=== PATIENT | female | born 1950 | race Caucasian/White ===

== ENCOUNTER → 2017-03-14 | Outpatient (CLI) | payer OTHER ==
--- NOTE | 2017-03-14 14:58 | RAD ---
DATE: 03/14/2017 EXAM: DIGITAL SCREEN BILAT W/CAD HISTORY: Astigmatic screening mammogram COMPARISON: Prior mammograms from 03/11/2016, 09/21/2015, 03/13/2015, 03/04/2015 This study was interpreted with the benefit of Computerized Aided Detection (CAD). The breast parenchyma is heterogeneously dense, which could reduce sensitivity of mammography. Breast parenchyma level C. FINDINGS: Bilateral CC and MLO views of the breasts were performed. Right breast: No suspicious microcalcifications, masses or areas of architectural distortion. Left breast: No suspicious microcalcifications, masses or areas of architectural distortion. Findings are stable from prior mammogram. IMPRESSION: Negative bilateral mammogram. BI-RADS CATEGORY: 1 NEGATIVE RECOMMENDED FOLLOW-UP: 12M 12 MONTH FOLLOW-UP PQRS compliance statement: Patient information was entered into a reminder system with a target due date 03/14/2018 for the next mammogram. Mammography is a sensitive method for finding small breast cancers, but it does not detect them all and is not a substitute for careful clinical examination. A negative mammogram does not negate a clinically suspicious finding and should not result in delay in biopsying a clinically suspicious abnormality. "Our facility is accredited by the [employer] Mammography Program."
== END | disposition home or self-care (01) ==
LOC: MAMMO 13:54
PROVIDERS: ATTEND Family Medicine
DX: Z12.31 Encounter for screening mammogram for malignant neoplasm of breast (principal)
CPT/HCPCS: G0202; 77067

== ENCOUNTER → 2018-03-15 | Outpatient (CLI) | payer OTHER ==
--- NOTE | 2018-03-16 19:09 | RAD ---
DATE: 03/15/2018 EXAM: DIGITAL SCREEN BILAT W/CAD HISTORY: routine screening evaluation. COMPARISON: 03/14/2017, 03/11/2016, 09/21/2015, 03/13/2015, 03/04/2015 Bilateral full field craniocaudal and mediolateral oblique images were obtained using digital technique. This study was interpreted with the benefit of Computerized Aided Detection (CAD). The breast parenchyma shows scattered fibroglandular densities. Breast parenchyma level B. FINDINGS: Benign calcifications are present. No suspicious masses, microcalcifications or architectural distortion is present to suggest malignancy in either breast. The visualized axillae are unremarkable. IMPRESSION: No mammographic evidence of malignancy. BI-RADS CATEGORY: 2 BENIGN FINDING(S) RECOMMENDED FOLLOW-UP: 12M 12 MONTH FOLLOW-UP Annual screening mammography is recommended, unless clinically indicated sooner based on symptoms or change in physical exam. PQRS compliance statement: Patient information was entered into a reminder system with a target due date for the next mammogram. Mammography is a sensitive method for finding small breast cancers, but it does not detect them all and is not a substitute for careful clinical examination. A negative mammogram does not negate a clinically suspicious finding and should not result in delay in biopsying a clinically suspicious abnormality. "Our facility is accredited by the [employer] Mammography [employer]."
== END | disposition home or self-care (01) ==
LOC: MAMMO 13:10
PROVIDERS: ATTEND Family Medicine
DX: Z12.31 Encounter for screening mammogram for malignant neoplasm of breast (principal)
CPT/HCPCS: 77067

== ENCOUNTER → 2018-12-27 | Outpatient (CLI) | payer OTHER ==
--- NOTE | 2018-12-27 11:28 | CARD ---
MR#: [id number] Date of Study: 12/27/2018 Ordering Physician: ROBERT BRYAN, Referring Physician: ROBERT BRYAN, Tech: Merna Godfrey YURIY APPROVED REPORT EXAM: Two-dimensional and M-mode echocardiogram with Doppler and color Doppler. Other Information Quality : Good INDICATION Murmur Exertional Dyspnea 2D DIMENSIONS RVDd2.6 (2.9-3.5cm)Left Atrium(2D)3.3 (1.6-4.0cm) IVSd0.9 (0.7-1.1cm)Aortic Root(2D)2.6 (2.0-3.7cm) LVDd4.6 (3.9-5.9cm)LVOT Diameter1.8 (1.8-2.4cm) PWd0.8 (0.7-1.1cm)LVDs3.2 (2.5-4.0cm) FS (%) 29.0 %SV53.5 ml LVEF(%)55.8 (>50%) Aortic Valve AoV Peak Robert.137.2cm/sAoV VTI28.1cm AO Peak GR.7.5mmHgLVOT Peak Robert.121.5cm/s AO Mean GR.4mmHgAVA (VMAX)2.14cm2 ZINA (VTI)2.50cm2 Mitral Valve MV E Sfypsdfw59.0cm/sMV DECEL NEWB806ef MV A Piijlmpy44.9cm/sE/A Ratio0.9 Tricuspid Valve TR P. Ddbwlnnz009fg/sRAP [id number] TR Peak Gr.45ibBeGDBJ78reYs Pulmonary Vein S1 Crlzbavk95.4cm/sD2 Lpgyuqwj22.9cm/s LEFT VENTRICLE The left ventricle is normal size. There is normal left ventricular wall thickness. The left ventricu lar systolic function is normal and the ejection fraction is within normal range. The Ejection Fracti on is 55-60%. There is normal LV segmental wall motion. Transmitral Doppler flow pattern is Grade I-a bnormal relaxation pattern. RIGHT VENTRICLE The right ventricle is normal size. The right ventricular systolic function is normal. ATRIA The left atrium size is normal. The right atrium size is normal. The interatrial septum is intact wit h no evidence for an atrial septal defect or patent foramen ovale as noted on 2-D or Doppler imaging. AORTIC VALVE The aortic valve is calcified but opens well. Doppler and Color Flow revealed no significant aortic r egurgitation. There is no significant aortic valvular stenosis. MITRAL VALVE The mitral valve is normal in structure and function. There is no evidence of mitral valve prolapse. There is no mitral valve stenosis. Doppler and Color-flow revealed trace to mild mitral regurgitation . TRICUSPID VALVE The tricuspid valve is normal in structure and function. Doppler and Color Flow revealed trace tricus pid regurgitation. The PA pressure was estimated at 31 mmHg. There is no tricuspid valve prolapse or vegetation. PULMONIC VALVE Doppler and Color Flow revealed trace pulmonic valvular regurgitation. There is no pulmonic valvular stenosis. GREAT VESSELS The aortic root is normal in size. The ascending aorta is normal in size. The IVC is normal in size a nd collapses >50% with inspiration. PERICARDIAL EFFUSION There is no evidence of significant pericardial effusion. Critical Notification Critical Value: No <Conclusion> The left ventricular systolic function is normal and the ejection fraction is within normal range. Th e Ejection Fraction is 55-60%. There is normal LV segmental wall motion. Signed by : Mario Cleary, Electronically Approved : 12/27/2018 11:28:13
== END | disposition home or self-care (01) ==
LOC: ECHO 09:36
PROVIDERS: ATTEND Internal Medicine Cardiovascular Disease
DX: I08.0 Rheumatic disorders of both mitral and aortic valves (principal)
CPT/HCPCS: 93306

== ENCOUNTER → 2019-06-04 | Outpatient (CLI) | payer MEDICAID ==
--- NOTE | 2019-06-04 16:41 | RAD ---
DATE: 06/04/2019. EXAM: DIGITAL SCREEN BILAT W/CAD. HISTORY: Routine mammographic screening. COMPARISON: 03/15/2018. This study was interpreted with the benefit of Computerized Aided Detection (CAD). FINDINGS: Breast Density: SCATTERED The breast parenchyma shows scattered fibroglandular densities. Breast parenchyma level B.. Scattered and coarse calcifications are benign. There are no suspicious masses, microcalcifications or architectural distortion. The parenchymal pattern is stable. BI-RADS CATEGORY: 2 BENIGN FINDING(S). RECOMMENDED FOLLOW-UP: 12M 12 MONTH FOLLOW-UP. PQRS compliance statement: Patient information was entered into a reminder system with a target due date 06/04/2020 for the next mammogram. Mammography is a sensitive method for finding small breast cancers, but it does not detect them all and is not a substitute for careful clinical examination. A negative mammogram does not negate a clinically suspicious finding and should not result in delay in biopsying a clinically suspicious abnormality. "Our facility is accredited by the [employer] Mammography Program."
== END | disposition home or self-care (01) ==
LOC: MAMMO 13:32
PROVIDERS: ATTEND Family Medicine
DX: Z12.31 Encounter for screening mammogram for malignant neoplasm of breast (principal); N64.89 Other specified disorders of breast
CPT/HCPCS: 77067

== ENCOUNTER 2019-12-08 10:52 | Observation (INO) | payer MEDICAID ==
[~2019-12-08] VITALS: Ht 157.5 cm; Wt 77.4 kg
[2019-12-08] MEDS ORDERED: dilTIAZem IV PUSH 25 MG/5 ML VIAL ONE (11:26)
[2019-12-08] MEDS ORDERED: DILTIAZEM HCL 125 MG in IV NORMAL SALINE 100ML 100 ML IV ONE (11:30)
[2019-12-08] MEDS ORDERED: dilTIAZem IV PUSH 25 MG/5 ML VIAL IVP ONE (11:30)
--- NOTE | 2019-12-08 11:43 | RAD ---
CHEST AP ONLY History: Chest pain Comparison: July 11, 2016 Findings: No consolidation or pleural effusion. Normal heart size. No pneumothorax. Surgical clips right upper quadrant. Impression: 1. No acute cardiopulmonary process. Electronically signed by: Yazan Meza DO (12/08/2019 11:41 AM) [facility] [place]
[2019-12-08 12:08] LABS: BASO # 0.1 x10^3/uL (0.0-0.2); BASO % 1 % (0-3); EOS # 0.3 x10^3/uL (0.0-0.7); EOS % 3 % (0-3); HEMATOCRIT 38.3 % (36.0-47.0); HEMOGLOBIN 12.3 g/dL (12.0-15.5); LYMPH # 2.6 x10^3/uL (1.0-4.8); LYMPH % 28 % (24-48); MEAN CORPUSCULAR HEMOGLOBIN 25 pg (25-35); MEAN CORPUSCULAR HGB CONC 32 g/dL (31-37); MEAN CORPUSCULAR VOLUME 77 fL (79-100); MONO # 0.4 x10^3/uL (0.0-1.1); MONO % 4 % (0-9); NEUT # 6.1 x10^3/uL (1.8-7.7); NEUT % 65 % (31-73); PLATELET COUNT 277 x10^3/uL (140-400); RED BLOOD COUNT 4.94 x10^6/uL (3.50-5.40); RED CELL DISTRIBUTION WIDTH 15.5 % (11.5-14.5); WHITE BLOOD COUNT 9.5 x10^3/uL (4.0-11.0)
[2019-12-08 12:17] LABS: CALCIUM 9.4 mg/dL (8.5-10.1); CREATININE 1.1 mg/dL (0.6-1.0); GFR 49.1; PROTHROMBIN TIME PATIENT 12.8 SEC (11.7-14.0)
[2019-12-08 12:22] LABS: ALBUMIN 3.3 g/dL (3.4-5.0); ALBUMIN/GLOBULIN RATIO 0.8 (1.0-1.7); MAGNESIUM 1.6 mg/dL (1.8-2.4); TOTAL BILIRUBIN 0.3 mg/dL (0.2-1.0); TOTAL PROTEIN 7.2 g/dL (6.4-8.2)
--- NOTE | 2019-12-08 12:29 | PHYS DOC ---
Past Medical History Past Medical History: CHF, Hypothyroid, Other Additional Past Medical Histor: MENTALLY HANDICAP Past Surgical History: Other Additional Past Surgical Histo: UNKNOWN Smoking Status: Former Smoker Alcohol Use: None General Adult EDM: Chief Complaint: RAPID HEART RATE HPI: HPI: Patient is a 69-year-old female with a history of congestive heart failure and a possible irregular heart rate. This morning she states that she was in her usual state of health when she became dizzy and felt like a jet engine was running through her head. She then states she just really felt a feeling of exhaustion. She denies any chest pain or shortness of breath. She had no vomiting she did say she was a little nauseous with the dizziness. Review of Systems: Review of Systems: Constitutional: Denies fever or chills. [] Eyes: Denies change in visual acuity. [] HENT: Denies nasal congestion or sore throat. [] Respiratory: Denies cough or shortness of breath. [] Cardiovascular: Per HPI [] GI: Denies abdominal pain, nausea, vomiting, bloody stools or diarrhea. [] : Denies dysuria. [] Musculoskeletal: Denies back pain or joint pain. [] Integument: Denies rash. [] Neurologic: Denies headache, focal weakness or sensory changes. [] Endocrine: Denies polyuria or polydipsia. [] Lymphatic: Denies swollen glands. [] Psychiatric: Reports anxiety. [] Heart Score: Risk Factors: Risk Factors: DM, Current or recent (<one month) smoker, HTN, HLP, family history of CAD, obesity. Risk Scores: Score 0 - 3: 2.5% MACE over next 6 weeks - Discharge Home Score 4 - 6: 20.3% MACE over next 6 weeks - Admit for Clinical Observation Score 7 - 10: 72.7% MACE over next 6 weeks - Early Invasive Strategies Current Medications: Current Medications Medications (Trade) Dose Ordered Sig/Keyshawn Start Time Stop Time Status Last Admin Dose Admin Diltiazem HCl (Cardizem Iv Push) 25 mg STK-MED ONCE 12/08/19 11:26 12/08/19 11:27 DC Diltiazem HCl 125 mg/Sodium Chloride 125 ml @ 5 mls/hr 1X ONCE 12/08/19 11:30 12/09/19 12:29 Allergies: Allergies: Allergies Coded Allergies Type Severity Reaction Last Updated Verified Penicillins Allergy Unknown UNKNOWN 12/08/19 Yes aspirin Allergy Unknown UNKNOWN 12/08/19 Yes Physical Exam: PE: Constitutional: Well developed, well nourished, mild to moderate distress, non- toxic appearance. [] HENT: Normocephalic, atraumatic, bilateral external ears normal, oropharynx moist, no oral exudates, nose normal. [] Eyes: PERRLA, EOMI, conjunctiva normal, no discharge. [] Neck: Normal range of motion, no tenderness, supple, no stridor. [] Cardiovascular: Tachycardia irregularly irregular [] Lungs & Thorax: Bilateral breath sounds clear to auscultation [] Abdomen: Bowel sounds normal, soft, no tenderness, no masses, no pulsatile m asses. [] Skin: Warm, dry, no erythema, no rash. [] Back: No tenderness, no CVA tenderness. [] Extremities: No tenderness, no cyanosis, no clubbing, ROM intact, no edema. [] Neurologic: Alert and oriented X 3, normal motor function, normal sensory function, no focal deficits noted. [] Psychologic: Anxious [] Current Patient Data: Labs: Laboratory Tests Test 12/08/19 11:10 White Blood Count 9.5 x10^3/uL (4.0-11.0) Red Blood Count 4.94 x10^6/uL (3.50-5.40) Hemoglobin 12.3 g/dL (12.0-15.5) Hematocrit 38.3 % (36.0-47.0) Mean Corpuscular Volume 77 fL (79-100) L Mean Corpuscular Hemoglobin 25 pg (25-35) Mean Corpuscular Hemoglobin Concent 32 g/dL (31-37) Red Cell Distribution Width 15.5 % (11.5-14.5) H Platelet Count 277 x10^3/uL (140-400) Neutrophils (%) (Auto) 65 % (31-73) Lymphocytes (%) (Auto) 28 % (24-48) Monocytes (%) (Auto) 4 % (0-9) Eosinophils (%) (Auto) 3 % (0-3) Basophils (%) (Auto) 1 % (0-3) Neutrophils # (Auto) 6.1 x10^3/uL (1.8-7.7) Lymphocytes # (Auto) 2.6 x10^3/uL (1.0-4.8) Monocytes # (Auto) 0.4 x10^3/uL (0.0-1.1) Eosinophils # (Auto) 0.3 x10^3/uL (0.0-0.7) Basophils # (Auto) 0.1 x10^3/uL (0.0-0.2) Sodium Level 141 mmol/L (136-145) Potassium Level 4.0 mmol/L (3.5-5.1) Chloride Level 103 mmol/L (98-107) Carbon Dioxide Level 27 mmol/L (21-32) Anion Gap 11 (6-14) Blood Urea Nitrogen 16 mg/dL (7-20) Creatinine 1.1 mg/dL (0.6-1.0) H Estimated GFR (Cockcroft-Gault) 49.1 BUN/Creatinine Ratio 15 (6-20) Glucose Level 117 mg/dL (70-99) H Calcium Level 9.4 mg/dL (8.5-10.1) Magnesium Level Pending Total Bilirubin Pending Aspartate Amino Transferase (AST) Pending Alanine Aminotransferase (ALT) Pending Alkaline Phosphatase Pending Total Protein Pending Albumin Pending Albumin/Globulin Ratio Pending Laboratory Tests 12/08/19 11:10 Laboratory Tests 12/08/19 11:10 Vital Signs: Vital Signs Date Time Temp Pulse Resp B/P (MAP) Pulse Ox O2 Delivery O2 Flow Rate FiO2 12/08/19 11:45 40 158/78 (104) 95 Room Air 12/08/19 10:52 98.3 19 98.3 EKG: EKG: [EKG #1: Rapid atrial fibrillation rate of 120 with no obvious ischemic ST-T changes EKG #2 sinus bradycardia rate of 40 no obvious ischemia] Radiology/Procedures: Radiology/Procedures: []REASON: chest pain PROCEDURE: CHEST AP ONLY CHEST AP ONLY History: Chest pain Comparison: July 11, 2016 Findings: No consolidation or pleural effusion. Normal heart size. No pneumothorax. Surgical clips right upper quadrant. Impression: 1. No acute cardiopulmonary process. Course & Med Decision Making: Course & Med Decision Making Pertinent Labs and Imaging studies reviewed. (See chart for details) [ED course: Evaluation reveals a 69-year-old female who was initially in rapid atrial fibrillation she was given 10 mg of Cardizem IV which brought her down into the 20s then 30 and she has been hovering in the 40s at sinus bradycardia since that time. The Cardizem drip was never started.] Zackary Disclaimer: Zackary Disclaimer: This electronic medical record was generated, in whole or in part, using a voice recognition dictation system. Departure Departure Impression: Primary Impression: Rapid atrial fibrillation Additional Impression: Sinus bradycardia Disposition: ADMITTED INPATIENT Admitting Physician: PARK Condition: STABLE Referrals: Rahat REY MD (PCP) MARGARETH MOCK DO December 08, 2019 12:29
[2019-12-08] MEDS ORDERED: ONDANSETRON PF 4 MG/2 ML VIAL. IV PRN ×2 (12:30→15:30)
--- NOTE | 2019-12-08 12:40 | PDOC1 ---
History and Physical Date of Admission Date of Admission DATE: 12/08/19 TIME: 12:39 Identification/Chief Complaint Chief Complaint SEEN IN ER WITH A FIB RVR , 69-year-old female with a history of congestive heart failure and a irregular heart rate. This morning she was in her usual state of health when she became dizzy and felt like a jet engine was running through her heaD //states she just really felt a feeling of exhaustion. She denies any chest pain or shortness of breath. had no vomiting she did say she was a little nauseous with the dizziness. Given 10 mg iv cardizem in er x 1 Past Medical History Past Medical History Past Medical History Past Medical History Past Medical History: CHF, Hypothyroid, Other Additional Past Medical Histor: MENTALLY HANDICAP Past Surgical History: Other Additional Past Surgical Histo: UNKNOWN Smoking Status: Former Smoker Alcohol Use: None fhx copd Musculoskeletal: Osteoarthritis Renal/: No pertinent hx Family History Family History: High Cholestrol Social History Smoke: No ALCOHOL: none Drugs: None Current Problem List Problem List Problems Medical Problems: (1) Rapid atrial fibrillation Status: Acute (2) Sinus bradycardia Status: Acute Current Medications Current Medications Current Medications Diltiazem HCl (Cardizem Iv Push) 10 mg 1X ONCE IVP Last administered on 12/08/19at 11:30; Start 12/08/19 at 11:30; Stop 12/08/19 at 11:35; Status DC Diltiazem HCl 125 mg/Sodium Chloride 125 ml @ 5 mls/hr 1X ONCE IV ; Start 12/08/19 at 11:30; Stop 12/09/19 at 12:29 Diltiazem HCl (Cardizem Iv Push) 25 mg STK-MED ONCE .ROUTE ; Start 12/08/19 at 11:26; Stop 12/08/19 at 11:27; Status DC Ondansetron HCl (Zofran) 4 mg PRN Q8HRS PRN IV NAUSEA/VOMITING; Start 12/08/19 at 12:30; Stop 12/09/19 at 12:29 Allergies Allergies: Coded Allergies: Penicillins (Verified Allergy, Unknown, UNKNOWN, 12/08/19) aspirin (Verified Allergy, Unknown, UNKNOWN, 12/08/19) ROS Review of System Review of Systems: 14 pt ros otherwise neg Constitutional: Denies fever or chills. [] Eyes: Denies change in visual acuity. [] HENT: Denies nasal congestion or sore throat. [] Respiratory: Denies cough or shortness of breath. [] Cardiovascular: Per HPI [] GI: Denies abdominal pain, nausea, vomiting, bloody stools or diarrhea. [] : Denies dysuria. [] Musculoskeletal: Denies back pain or joint pain. [] Integument: Denies rash. [] Neurologic: Denies headache, focal weakness or sensory changes. [] Endocrine: Denies polyuria or polydipsia. [] Lymphatic: Denies swollen glands. [] Psychiatric: Reports anxiety. [] General: YES: Fatigue, Malaise PSYCHOLOGICAL ROS: YES: Anxiety; No: Behavioral Disorder, Concentration difficultie, Decreased libido, Depression, Disorientation, Hallucinations, Hostility, Irritablity, Memory difficulties, Mood Swings, Obsessive thoughts, Physical abuse, Sexual abuse, Sleep disturbances, Suicidal ideation, Other Eyes: No Blurry vision, No Decreased vision, No Double vision, No Dry eyes, No Excessive tearing, No Eye Pain, No Itchy Eyes, No Loss of vision, No Photophobia, No Scotomata, No Uses contacts, No Uses glasses, No Other HEENT: No: Heacaches, Visual Changes, Hearing change, Nasal congestion, Nasal discharge, Oral lesions, Sinus pain, Sore Throat, Epistaxis, Sneezing, Snoring, Tinnitus, Vertigo, Vocal changes, Other Hematological and Lymphatic: No: Bleeding Problems, Blood Clots, Blood Transfusions, Brusing, Night Sweats, Pallor, Swollen Lymph Nodes, Other Cardiovascular: yes Palpitations; No Chest Pain, No Orthopnea, No Paroxysmal Noc. Dyspnea, No Edema, No Lt Headedness, No Other Gastrointestinal: Yes Nausea; No Vomiting, No Abdominal Pain, No Diarrhea, No Constipation, No Melena, No Hematochezia, No Other Genitourinary: No Dysuria, No Frequency, No Incontinence, No Hematuria, No Retention, No Discharge, No Urgency, No Pain, No Flank Pain, No Other, No , No , No , No , No , No , No Musculoskeletal: No Gait Disturbance, No Joint Pain, No Joint Stiffness, No Trinity int Swelling, No Muscle Pain, No Muscular Weakness, No Pain In:, No Swelling In:, No Other Neurological: Yes Confusion; No Behavorial Changes, No Bowel/Bladder ControlChng, No Dizziness, No Gait Disturbance, No Headaches, No Impaired Coord/balance, No Memory Loss, No Numbness/Tingling, No Seizures, No Speech Problems, No Tremors, No Visual Changes, No Weakness, No Other Skin: No Dry Skin, No Eczema, No Hair Changes, No Lumps, No Mole Changes, No Mottling, No Nail Changes, No Pruritus, No Rash, No Skin Lesion Changes, No Other, No Acne Physical Exam Physical Exam Physical Exam: PE: Constitutional: Well developed, well nourished, mild to moderate distress, non- toxic appearance. [] HENT: Normocephalic, atraumatic, bilateral external ears normal, oropharynx moist, no oral exudates, nose normal. [] Eyes: PERRLA, EOMI, conjunctiva normal, no discharge. [] Neck: Normal range of motion, no tenderness, supple, no stridor. [] Cardiovascular: Tachycardia irregularly irregular [] Lungs & Thorax: Bilateral breath sounds clear to auscultation [] Abdomen: Bowel sounds normal, soft, no tenderness, no masses, no pulsatile masses. [] Skin: Warm, dry, no erythema, no rash. [] Back: No tenderness, no CVA tenderness. [] Extremities: No tenderness, no cyanosis, no clubbing, ROM intact, no edema. [] Neurologic: Alert and oriented X 3, normal motor function, normal sensory function, no focal deficits noted. [] Psychologic: Anxious [] General: Alert, Oriented X3, Cooperative HEENT: EOMI, Mucous membr. moist/pink Lungs: Clear to auscultation, Normal air movement Heart: irregularly irregular Breasts: Not examined Abdomen: Normal bowel sounds, Soft Rectal Exam: not examined Extremities: No cyanosis Neuro: Normal speech, Cranial nerves 3-12 NL Psych/Mental Status: Mood NL Vitals Vitals Vital Signs Date Time Temp Pulse Resp B/P (MAP) Pulse Ox O2 Delivery O2 Flow Rate FiO2 12/08/19 11:45 40 158/78 (104) 95 Room Air 12/08/19 10:52 98.3 19 98.3 Labs Labs Laboratory Tests Test 12/08/19 11:10 White Blood Count 9.5 x10^3/uL (4.0-11.0) Red Blood Count 4.94 x10^6/uL (3.50-5.40) Hemoglobin 12.3 g/dL (12.0-15.5) Hematocrit 38.3 % (36.0-47.0) Mean Corpuscular Volume 77 fL (79-100) Mean Corpuscular Hemoglobin 25 pg (25-35) Mean Corpuscular Hemoglobin Concent 32 g/dL (31-37) Red Cell Distribution Width 15.5 % (11.5-14.5) Platelet Count 277 x10^3/uL (140-400) Neutrophils (%) (Auto) 65 % (31-73) Lymphocytes (%) (Auto) 28 % (24-48) Monocytes (%) (Auto) 4 % (0-9) Eosinophils (%) (Auto) 3 % (0-3) Basophils (%) (Auto) 1 % (0-3) Neutrophils # (Auto) 6.1 x10^3/uL (1.8-7.7) Lymphocytes # (Auto) 2.6 x10^3/uL (1.0-4.8) Monocytes # (Auto) 0.4 x10^3/uL (0.0-1.1) Eosinophils # (Auto) 0.3 x10^3/uL (0.0-0.7) Basophils # (Auto) 0.1 x10^3/uL (0.0-0.2) Prothrombin Time 12.8 SEC (11.7-14.0) Prothromb Time International Ratio 1.0 (0.8-1.1) Sodium Level 141 mmol/L (136-145) Potassium Level 4.0 mmol/L (3.5-5.1) Chloride Level 103 mmol/L (98-107) Carbon Dioxide Level 27 mmol/L (21-32) Anion Gap 11 (6-14) Blood Urea Nitrogen 16 mg/dL (7-20) Creatinine 1.1 mg/dL (0.6-1.0) Estimated GFR (Cockcroft-Gault) 49.1 BUN/Creatinine Ratio 15 (6-20) Glucose Level 117 mg/dL (70-99) Calcium Level 9.4 mg/dL (8.5-10.1) Magnesium Level 1.6 mg/dL (1.8-2.4) Total Bilirubin 0.3 mg/dL (0.2-1.0) Aspartate Amino Transf (AST/SGOT) 12 U/L (15-37) Alanine Aminotransferase (ALT/SGPT) 10 U/L (14-59) Alkaline Phosphatase 117 U/L (46-116) Troponin I Quantitative < 0.017 ng/mL (0.000-0.055) Total Protein 7.2 g/dL (6.4-8.2) Albumin 3.3 g/dL (3.4-5.0) Albumin/Globulin Ratio 0.8 (1.0-1.7) Thyroid Stimulating Hormone (TSH) 2.398 uIU/mL (0.358-3.74) Laboratory Tests Test 12/08/19 11:10 White Blood Count 9.5 x10^3/uL (4.0-11.0) Red Blood Count 4.94 x10^6/uL (3.50-5.40) Hemoglobin 12.3 g/dL (12.0-15.5) Hematocrit 38.3 % (36.0-47.0) Mean Corpuscular Volume 77 fL (79-100) Mean Corpuscular Hemoglobin 25 pg (25-35) Mean Corpuscular Hemoglobin Concent 32 g/dL (31-37) Red Cell Distribution Width 15.5 % (11.5-14.5) Platelet Count 277 x10^3/uL (140-400) Neutrophils (%) (Auto) 65 % (31-73) Lymphocytes (%) (Auto) 28 % (24-48) Monocytes (%) (Auto) 4 % (0-9) Eosinophils (%) (Auto) 3 % (0-3) Basophils (%) (Auto) 1 % (0-3) Neutrophils # (Auto) 6.1 x10^3/uL (1.8-7.7) Lymphocytes # (Auto) 2.6 x10^3/uL (1.0-4.8) Monocytes # (Auto) 0.4 x10^3/uL (0.0-1.1) Eosinophils # (Auto) 0.3 x10^3/uL (0.0-0.7) Basophils # (Auto) 0.1 x10^3/uL (0.0-0.2) Prothrombin Time 12.8 SEC (11.7-14.0) Prothromb Time International Ratio 1.0 (0.8-1.1) Sodium Level 141 mmol/L (136-145) Potassium Level 4.0 mmol/L (3.5-5.1) Chloride Level 103 mmol/L (98-107) Carbon Dioxide Level 27 mmol/L (21-32) Anion Gap 11 (6-14) Blood Urea Nitrogen 16 mg/dL (7-20) Creatinine 1.1 mg/dL (0.6-1.0) Estimated GFR (Cockcroft-Gault) 49.1 BUN/Creatinine Ratio 15 (6-20) Glucose Level 117 mg/dL (70-99) Calcium Level 9.4 mg/dL (8.5-10.1) Magnesium Level 1.6 mg/dL (1.8-2.4) Total Bilirubin 0.3 mg/dL (0.2-1.0) Aspartate Amino Transf (AST/SGOT) 12 U/L (15-37) Alanine Aminotransferase (ALT/SGPT) 10 U/L (14-59) Alkaline Phosphatase 117 U/L (46-116) Troponin I Quantitative < 0.017 ng/mL (0.000-0.055) Total Protein 7.2 g/dL (6.4-8.2) Albumin 3.3 g/dL (3.4-5.0) Albumin/Globulin Ratio 0.8 (1.0-1.7) Thyroid Stimulating Hormone (TSH) 2.398 uIU/mL (0.358-3.74) VTE Prophylaxis Ordered VTE Prophylaxis Devices: Yes VTE Pharmacological Prophylaxi: Yes Assessment/Plan Assessment/Plan Impression: Rapid atrial fibrillation, rvr acute hypertensive urgency Sinus bradycardia CKD STAGE 2 HYPERLIPIDEMIA Diabetes ADMITTED cvc bed consult cardiology home meds dvt prophylaxis iv hydralazine 10mg q 4 hrs prn bp support accuchPRANAY Cano MD December 08, 2019 12:40
[2019-12-08 13:05] LABS: BILIRUBIN,URINE NEGATIVE (NEG); CLARITY,URINE CLEAR; COLOR,URINE STRAW; NITRITE,URINE NEGATIVE (NEG); PROTEIN,URINE NEGATIVE (NEG-TRACE); SQUAMOUS EPITHELIAL CELL,UR MOD /LPF; UROBILINOGEN,URINE 0.2 mg/dL (0.2 mg/dL)
[2019-12-08 13:06] LABS: BACTERIA,URINE FEW /HPF (0-FEW)
[2019-12-08 13:20] VITALS: BP 151/63
[2019-12-08] MEDS ORDERED: CRESTOR40 MG PO (14:54)
[2019-12-08] MEDS ORDERED: TRIA1TAB3 PO (14:54)
[2019-12-08] MEDS ORDERED: LEVO50TA5 PO (14:54)
[2019-12-08] MEDS ORDERED: CARV25TA2 PO (14:54)
[2019-12-08] MEDS ORDERED: INSU100V37 SQ (14:54)
[2019-12-08] MEDS ORDERED: METF-658 PO (14:54)
[2019-12-08] MEDS ORDERED: INSU100V6 SQ (14:54)
[2019-12-08 15:00] VITALS: BP 193/85
[2019-12-08] MEDS ORDERED: TRIAMTERENE/HCTZ 37.5/25MG TABLET. PO PRN (15:00)
[2019-12-08] MEDS: hydrALAZINE 20 MG/ML VIAL. IVP PRN ×2 (15:16→22:47)
[2019-12-08] MEDS ORDERED: 0.9 % SODIUM CHLORIDE 10 ML DISP.SYRIN. IV PRN (15:30)
[2019-12-08] MEDS ORDERED: MAG HYDROX/ALUMINUM HYD/SIMETH 30 ML ORAL.SUSP PO PRN (15:30)
[2019-12-08] MEDS ORDERED: ACETAMINOPHEN 325 MG TABLET. PO PRN (15:30)
[2019-12-08] MEDS ORDERED: ALBUTEROL SULFATE 2.5 MG/3 ML NEBU. NEB PRN (15:30)
[2019-12-08] MEDS ORDERED: LORazepam 0.5 MG TABLET PO PRN (15:30)
[2019-12-08] MEDS ORDERED: guaiFENesin ORAL 200 MG/10 ML LIQUID. PO PRN (15:30)
[2019-12-08] MEDS ORDERED: DOCUSATE SODIUM 100 MG CAPSULE. PO PRN (15:30)
[2019-12-08] MEDS ORDERED: SODIUM PHOSPHATES 19/7GM 133 ML ENEMA. PR PRN (15:30)
[2019-12-08] MEDS: INSULIN LISPRO 300 UNITS/3 ML VIAL. SQ SCH (17:00)
[2019-12-08] MEDS: metFORMIN XR 500 MG TAB.ER.24H PO SCH (17:13)
[2019-12-08] MEDS: CARVEDILOL 6.25 MG TABLET. PO SCH (17:14)
[2019-12-08] MEDS: ENOXAPARIN 40 MG/0.4 ML SYRINGE. SQ SCH (17:14)
[2019-12-08] MEDS: IV NORMAL SALINE 1000ML BAG 1,000 ML IV SCH (17:15)
[2019-12-08 19:30] VITALS: BP 157/72
[2019-12-08] MEDS ORDERED: INSULIN GLARGINE SYRINGE. SQ SCH (21:00)
[2019-12-08] MEDS ORDERED: ATORVASTATIN CALCIUM 40 MG TABLET. PO SCH (21:00)
[2019-12-08 22:30] VITALS: BP 196/96
[2019-12-09 02:52] VITALS: BP 151/59
[2019-12-09 04:27] LABS: BASO % 0 % (0-3); EOS # 0.1 x10^3/uL (0.0-0.7); EOS % 1 % (0-3); HEMATOCRIT 32.6 % (36.0-47.0); HEMOGLOBIN 10.4 g/dL (12.0-15.5); LYMPH # 3.2 x10^3/uL (1.0-4.8); LYMPH % 28 % (24-48); MEAN CORPUSCULAR HEMOGLOBIN 25 pg (25-35); MEAN CORPUSCULAR HGB CONC 32 g/dL (31-37); MEAN CORPUSCULAR VOLUME 78 fL (79-100); MONO # 0.4 x10^3/uL (0.0-1.1); MONO % 4 % (0-9); NEUT # 7.7 x10^3/uL (1.8-7.7); NEUT % 67 % (31-73); PLATELET COUNT 249 x10^3/uL (140-400); RED CELL DISTRIBUTION WIDTH 15.6 % (11.5-14.5); WHITE BLOOD COUNT 11.5 x10^3/uL (4.0-11.0)
[2019-12-09 04:50] LABS: ALBUMIN 2.8 g/dL (3.4-5.0); ALBUMIN/GLOBULIN RATIO 0.9 (1.0-1.7); CALCIUM 8.6 mg/dL (8.5-10.1); GFR 54.8; POTASSIUM 3.9 mmol/L (3.5-5.1); TOTAL BILIRUBIN 0.4 mg/dL (0.2-1.0)
[2019-12-09] MEDS ORDERED: LEVOTHYROXINE 50 MCG TABLET PO SCH (06:00)
[2019-12-09 06:31] VITALS: BP 158/69
[2019-12-09] MEDS: IV NORMAL SALINE 1000ML BAG 1,000 ML IV SCH (06:53)
--- NOTE | 2019-12-09 07:01 | EKG ---
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
--- NOTE | 2019-12-09 07:01 | EKG ---
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
[2019-12-09] MEDS: INSULIN LISPRO 300 UNITS/3 ML VIAL. SQ SCH ×2 (08:00→12:00)
[2019-12-09] MEDS: CARVEDILOL 6.25 MG TABLET. PO SCH (08:46)
[2019-12-09] MEDS: metFORMIN XR 500 MG TAB.ER.24H PO SCH (08:46)
--- NOTE | 2019-12-09 09:03 | PDOC ---
[employer] PROGRESS NOTE Chief Complaint Chief Complaint A. fib with RVR Possible sick sinus syndrome Chronic kidney disease stage II Hyperlipidemia Diabetes Debility CHF Cognitively challenged History of Present Illness History of Present Illness 12/09/2019 Patient seen and examined She was sleeping but awoke Pleasant Chart reviewed Discussed with RN Vitals/I&O Vitals/I&O: Vital Signs Date Time Temp Pulse Resp B/P (MAP) Pulse Ox O2 Delivery O2 Flow Rate FiO2 12/09/19 08:46 76 158/69 12/09/19 06:31 98.3 20 91 Room Air 98.3 I & O 12/08/19 12/08/19 12/09/19 14:59 22:59 06:59 Intake Total 180 ml 1320 ml Output Total 300 ml 150 ml Balance -120 ml 1170 ml Physical Exam General: Alert, Oriented X3, Cooperative, Other (Appears weak) Heart: Other (Irregular rate at 70 bpm) Lungs: Other (Slight crackles bilaterally) Abdomen: Normal bowel sounds, Soft Extremities: No cyanosis Labs Labs: Laboratory Tests Test 12/08/19 11:10 12/08/19 12:40 12/08/19 16:00 12/08/19 16:48 White Blood Count 9.5 x10^3/uL (4.0-11.0) Red Blood Count 4.94 x10^6/uL (3.50-5.40) Hemoglobin 12.3 g/dL (12.0-15.5) Hematocrit 38.3 % (36.0-47.0) Mean Corpuscular Volume 77 fL (79-100) Mean Corpuscular Hemoglobin 25 pg (25-35) Mean Corpuscular Hemoglobin Concent 32 g/dL (31-37) Red Cell Distribution Width 15.5 % (11.5-14.5) Platelet Count 277 x10^3/uL (140-400) Neutrophils (%) (Auto) 65 % (31-73) Lymphocytes (%) (Auto) 28 % (24-48) Monocytes (%) (Auto) 4 % (0-9) Eosinophils (%) (Auto) 3 % (0-3) Basophils (%) (Auto) 1 % (0-3) Neutrophils # (Auto) 6.1 x10^3/uL (1.8-7.7) Lymphocytes # (Auto) 2.6 x10^3/uL (1.0-4.8) Monocytes # (Auto) 0.4 x10^3/uL (0.0-1.1) Eosinophils # (Auto) 0.3 x10^3/uL (0.0-0.7) Basophils # (Auto) 0.1 x10^3/uL (0.0-0.2) Prothrombin Time 12.8 SEC (11.7-14.0) Prothromb Time International Ratio 1.0 (0.8-1.1) Sodium Level 141 mmol/L (136-145) Potassium Level 4.0 mmol/L (3.5-5.1) Chloride Level 103 mmol/L (98-107) Carbon Dioxide Level 27 mmol/L (21-32) Anion Gap 11 (6-14) Blood Urea Nitrogen 16 mg/dL (7-20) Creatinine 1.1 mg/dL (0.6-1.0) Estimated GFR (Cockcroft-Gault) 49.1 BUN/Creatinine Ratio 15 (6-20) Glucose Level 117 mg/dL (70-99) Calcium Level 9.4 mg/dL (8.5-10.1) Magnesium Level 1.6 mg/dL (1.8-2.4) Total Bilirubin 0.3 mg/dL (0.2-1.0) Aspartate Amino Transf (AST/SGOT) 12 U/L (15-37) Alanine Aminotransferase (ALT/SGPT) 10 U/L (14-59) Alkaline Phosphatase 117 U/L (46-116) Troponin I Quantitative < 0.017 ng/mL (0.000-0.055) < 0.017 ng/mL (0.000-0.055) Total Protein 7.2 g/dL (6.4-8.2) Albumin 3.3 g/dL (3.4-5.0) Albumin/Globulin Ratio 0.8 (1.0-1.7) Thyroid Stimulating Hormone (TSH) 2.398 uIU/mL (0.358-3.74) Urine Collection Type Unknown Urine Color Straw Urine Clarity Clear Urine pH 7.0 (<5.0-8.0) Urine Specific [place] 1.015 (1.000-1.030) Urine Protein Negative mg/dL (NEG-TRACE) Urine Glucose (UA) Negative mg/dL (NEG) Urine Ketones (Stick) Negative mg/dL (NEG) Urine Blood Trace (NEG) Urine Nitrite Negative (NEG) Urine Bilirubin Negative (NEG) Urine Urobilinogen Dipstick 0.2 mg/dL (0.2 mg/dL) Urine Leukocyte Esterase Negative (NEG) Urine RBC 1-2 /HPF (0-2) Urine WBC 1-4 /HPF (0-4) Urine Squamous Epithelial Cells Mod /LPF Urine Bacteria Few /HPF (0-FEW) Urine Mucus Slight /LPF Glucose (Fingerstick) 94 mg/dL (70-99) Test 12/08/19 18:55 12/08/19 21:18 12/09/19 04:00 12/09/19 07:30 Troponin I Quantitative < 0.017 ng/mL (0.000-0.055) Glucose (Fingerstick) 111 mg/dL (70-99) 83 mg/dL (70-99) White Blood Count 11.5 x10^3/uL (4.0-11.0) Red Blood Count 4.20 x10^6/uL (3.50-5.40) Hemoglobin 10.4 g/dL (12.0-15.5) Hematocrit 32.6 % (36.0-47.0) Mean Corpuscular Volume 78 fL (79-100) Mean Corpuscular Hemoglobin 25 pg (25-35) Mean Corpuscular Hemoglobin Concent 32 g/dL (31-37) Red Cell Distribution Width 15.6 % (11.5-14.5) Platelet Count 249 x10^3/uL (140-400) Neutrophils (%) (Auto) 67 % (31-73) Lymphocytes (%) (Auto) 28 % (24-48) Monocytes (%) (Auto) 4 % (0-9) Eosinophils (%) (Auto) 1 % (0-3) Basophils (%) (Auto) 0 % (0-3) Neutrophils # (Auto) 7.7 x10^3/uL (1.8-7.7) Lymphocytes # (Auto) 3.2 x10^3/uL (1.0-4.8) Monocytes # (Auto) 0.4 x10^3/uL (0.0-1.1) Eosinophils # (Auto) 0.1 x10^3/uL (0.0-0.7) Basophils # (Auto) 0.0 x10^3/uL (0.0-0.2) Sodium Level 143 mmol/L (136-145) Potassium Level 3.9 mmol/L (3.5-5.1) Chloride Level 106 mmol/L (98-107) Carbon Dioxide Level 29 mmol/L (21-32) Anion Gap 8 (6-14) Blood Urea Nitrogen 17 mg/dL (7-20) Creatinine 1.0 mg/dL (0.6-1.0) Estimated GFR (Cockcroft-Gault) 54.8 BUN/Creatinine Ratio 17 (6-20) Glucose Level 104 mg/dL (70-99) Calcium Level 8.6 mg/dL (8.5-10.1) Total Bilirubin 0.4 mg/dL (0.2-1.0) Aspartate Amino Transf (AST/SGOT) 12 U/L (15-37) Alanine Aminotransferase (ALT/SGPT) 9 U/L (14-59) Alkaline Phosphatase 102 U/L (46-116) Total Protein 6.0 g/dL (6.4-8.2) Albumin 2.8 g/dL (3.4-5.0) Albumin/Globulin Ratio 0.9 (1.0-1.7) Review of Systems Review of Systems: Complains of weakness Assessment and Plan Assessmemt and Plan Problems Medical Problems: (1) Rapid atrial fibrillation Status: Acute (2) Sinus bradycardia Status: Acute A. fib with RVR Possible sick sinus syndrome Chronic kidney disease stage II Hyperlipidemia Diabetes Debility CHF Cognitively challenged Plan cardiac monitor technician Consider anticoagulation if cardiology agrees Home meds Rate control with negative chronotropic agents Serial enzymes Serial EKGs Echocardiogram Cardiology consult DVT prophylaxis Full code Prognosis guarded Appreciate subspecialist input Comment Review of Relevant I have reviewed the following items mono (where applicable) has been applied. Medications: Current Medications Medications (Trade) Dose Ordered Sig/Keyshawn Route PRN Reason Start Time Stop Time Status Last Admin Dose Admin Diltiazem HCl (Cardizem Iv Push) 10 mg 1X ONCE IVP 12/08/19 11:30 12/08/19 11:35 DC 12/08/19 11:30 Levothyroxine Sodium (Synthroid) 50 mcg DAILY06 PO 12/09/19 06:00 12/09/19 06:26 Metformin HCl (Glucophage Xr) 500 mg BIDWMEALS PO 12/08/19 17:00 12/09/19 08:46 Carvedilol (Coreg) 6.25 mg BIDWMEALS PO 12/08/19 17:00 12/09/19 08:46 Insulin Glargine (Lantus Syringe) 50 unit QHS SQ 12/08/19 21:00 12/08/19 22:42 Atorvastatin Calcium (Lipitor) 80 mg QHS PO 12/08/19 21:00 12/08/19 22:37 Hydralazine HCl (Apresoline Inj) 10 mg PRN Q4HRS PRN IVP ELEVATED BP, SEE COMMENTS 12/08/19 15:15 12/08/19 22:47 Sodium Chloride 1,000 ml @ 65 mls/hr [id number] IV 12/08/19 15:29 12/08/19 17:15 Ondansetron HCl (Zofran) 4 mg PRN Q4HRS PRN IV NAUSEA/VOMITING 12/08/19 15:30 12/09/19 00:19 Albuterol Sulfate (Ventolin Neb Soln) 2.5 mg PRN Q4HRS PRN NEB SHORTNESS OF BREATH 12/08/19 15:30 12/08/19 20:13 Enoxaparin Sodium (Lovenox 40mg Syringe) 40 mg Q24H SQ 12/08/19 15:30 12/08/19 17:14 KALEY JEAN III DO December 09, 2019 09:03
--- NOTE | 2019-12-09 10:23 | PDOC2 ---
CARDIAC CONSULT DATE OF CONSULT Date of Consult DATE: 12/09/19 TIME: 10:17 REASON FOR CONSULT Reason for Consult: AFIB with RVR REFERRING PHYSICIAN Referring Physician: Dr. Monson SOURCE Source: Chart review, Patient HISTORY OF PRESENT ILLNESS HISTORY OF PRESENT ILLNESS This is a 69 yo female who presented secondary to dizziness and palpitations. [place] as if her heart was racing. Was noted in AFIB with RVR, which prompted this consult. Denies any chest pain, shortness of breath, diaphoresis, or nausea/vomiting. Was given Cardizem bolus in ED and convert back to SR and has been maintaining. PAST MEDICAL HISTORY Cardiovascular: CHF, HTN, Hyperlipidemia CENTRAL NERVOUS SYSTEM: Dementia Endocrine: Diabetes, Hypothyroidism PAST SURGICAL HISTORY Past Surgical History: Hysterectomy FAMILY HISTORY Family History: Heart Disease SOCIAL HISTORY Smoke: No ALCOHOL: none Drugs: None Lives: with Family CURRENT MEDICATIONS CURRENT MEDICATIONS Current Medications Medications (Trade) Dose Ordered Sig/Keyshawn Route PRN Reason Start Time Stop Time Status Last Admin Dose Admin Diltiazem HCl (Cardizem Iv Push) 10 mg 1X ONCE IVP 12/08/19 11:30 12/08/19 11:35 DC 12/08/19 11:30 Levothyroxine Sodium (Synthroid) 50 mcg DAILY06 PO 12/09/19 06:00 12/09/19 06:26 Metformin HCl (Glucophage Xr) 500 mg BIDWMEALS PO 12/08/19 17:00 12/09/19 08:46 Carvedilol (Coreg) 6.25 mg BIDWMEALS PO 12/08/19 17:00 12/09/19 08:46 Insulin Glargine (Lantus Syringe) 50 unit QHS SQ 12/08/19 21:00 12/08/19 22:42 Atorvastatin Calcium (Lipitor) 80 mg QHS PO 12/08/19 21:00 12/08/19 22:37 Hydralazine HCl (Apresoline Inj) 10 mg PRN Q4HRS PRN IVP ELEVATED BP, SEE COMMENTS 12/08/19 15:15 12/08/19 22:47 Sodium Chloride 1,000 ml @ 65 mls/hr [id number] IV 12/08/19 15:29 12/08/19 17:15 Ondansetron HCl (Zofran) 4 mg PRN Q4HRS PRN IV NAUSEA/VOMITING 12/08/19 15:30 12/09/19 00:19 Albuterol Sulfate (Ventolin Neb Soln) 2.5 mg PRN Q4HRS PRN NEB SHORTNESS OF BREATH 12/08/19 15:30 12/08/19 20:13 Enoxaparin Sodium (Lovenox 40mg Syringe) 40 mg Q24H SQ 12/08/19 15:30 12/08/19 17:14 ALLERGIES ALLERGIES: Coded Allergies: Penicillins (Verified Allergy, Intermediate, 12/09/19) aspirin (Verified Allergy, Intermediate, 12/09/19) ROS Review of System 14 point ROS conducted with pertinent positives noted above in HPI PHYSICAL EXAM General: Alert, Oriented X3, Cooperative, No acute distress HEENT: Atraumatic, Mucous membr. moist/pink Lungs: Clear to auscultation, Normal air movement Heart: Regular rate, Normal S1, Normal S2 Abdomen: Soft, No tenderness Extremities: No edema, Normal pulses Skin: No significant lesion Neuro: Normal speech, Sensation intact Psych/Mental Status: Mental status NL, Mood NL MUSCULOSKELETAL: Osteoarthritic changes both hands VITALS/I&O VITALS/I&O: Vital Signs Date Time Temp Pulse Resp B/P (MAP) Pulse Ox O2 Delivery O2 Flow Rate FiO2 12/09/19 08:46 76 158/69 12/09/19 06:31 98.3 20 91 Room Air 98.3 I & O 12/08/19 12/08/19 12/09/19 15:00 23:00 07:00 Intake Total 180 ml 1320 ml Output Total 300 ml 150 ml Balance -120 ml 1170 ml LABS Lab: Laboratory Tests Test 12/08/19 11:10 12/08/19 12:40 12/08/19 16:00 12/08/19 16:48 White Blood Count 9.5 x10^3/uL (4.0-11.0) Red Blood Count 4.94 x10^6/uL (3.50-5.40) Hemoglobin 12.3 g/dL (12.0-15.5) Hematocrit 38.3 % (36.0-47.0) Mean Corpuscular Volume 77 fL (79-100) L Mean Corpuscular Hemoglobin 25 pg (25-35) Mean Corpuscular Hemoglobin Concent 32 g/dL (31-37) Red Cell Distribution Width 15.5 % (11.5-14.5) H Platelet Count 277 x10^3/uL (140-400) Neutrophils (%) (Auto) 65 % (31-73) Lymphocytes (%) (Auto) 28 % (24-48) Monocytes (%) (Auto) 4 % (0-9) Eosinophils (%) (Auto) 3 % (0-3) Basophils (%) (Auto) 1 % (0-3) Neutrophils # (Auto) 6.1 x10^3/uL (1.8-7.7) Lymphocytes # (Auto) 2.6 x10^3/uL (1.0-4.8) Monocytes # (Auto) 0.4 x10^3/uL (0.0-1.1) Eosinophils # (Auto) 0.3 x10^3/uL (0.0-0.7) Basophils # (Auto) 0.1 x10^3/uL (0.0-0.2) Prothrombin Time 12.8 SEC (11.7-14.0) Prothrombin Time INR 1.0 (0.8-1.1) Sodium Level 141 mmol/L (136-145) Potassium Level 4.0 mmol/L (3.5-5.1) Chloride Level 103 mmol/L (98-107) Carbon Dioxide Level 27 mmol/L (21-32) Anion Gap 11 (6-14) Blood Urea Nitrogen 16 mg/dL (7-20) Creatinine 1.1 mg/dL (0.6-1.0) H Estimated GFR (Cockcroft-Gault) 49.1 BUN/Creatinine Ratio 15 (6-20) Glucose Level 117 mg/dL (70-99) H Calcium Level 9.4 mg/dL (8.5-10.1) Magnesium Level 1.6 mg/dL (1.8-2.4) L Total Bilirubin 0.3 mg/dL (0.2-1.0) Aspartate Amino Transferase (AST) 12 U/L (15-37) L Alanine Aminotransferase (ALT) 10 U/L (14-59) L Alkaline Phosphatase 117 U/L (46-116) H Troponin I Quantitative < 0.017 ng/mL (0.000-0.055) < 0.017 ng/mL (0.000-0.055) Total Protein 7.2 g/dL (6.4-8.2) Albumin 3.3 g/dL (3.4-5.0) L Albumin/Globulin Ratio 0.8 (1.0-1.7) L Thyroid Stimulating Hormone (TSH) 2.398 uIU/mL (0.358-3.74) Urine Collection Type Unknown Urine Color Straw Urine Clarity Clear Urine pH 7.0 (<5.0-8.0) Urine Specific [place] 1.015 (1.000-1.030) Urine Protein Negative mg/dL (NEG-TRACE) Urine Glucose (UA) Negative mg/dL (NEG) Urine Ketones (Stick) Negative mg/dL (NEG) Urine Blood Trace (NEG) Urine Nitrite Negative (NEG) Urine Bilirubin Negative (NEG) Urine Urobilinogen Dipstick 0.2 mg/dL (0.2 mg/dL) Urine Leukocyte Esterase Negative (NEG) Urine RBC 1-2 /HPF (0-2) Urine WBC 1-4 /HPF (0-4) Urine Squamous Epithelial Cells Mod /LPF Urine Bacteria Few /HPF (0-FEW) Urine Mucus Slight /LPF Glucose (Fingerstick) 94 mg/dL (70-99) Test 12/08/19 18:55 12/08/19 21:18 12/09/19 04:00 12/09/19 07:30 Troponin I Quantitative < 0.017 ng/mL (0.000-0.055) Glucose (Fingerstick) 111 mg/dL (70-99) H 83 mg/dL (70-99) White Blood Count 11.5 x10^3/uL (4.0-11.0) H Red Blood Count 4.20 x10^6/uL (3.50-5.40) Hemoglobin 10.4 g/dL (12.0-15.5) L Hematocrit 32.6 % (36.0-47.0) L Mean Corpuscular Volume 78 fL (79-100) L Mean Corpuscular Hemoglobin 25 pg (25-35) Mean Corpuscular Hemoglobin Concent 32 g/dL (31-37) Red Cell Distribution Width 15.6 % (11.5-14.5) H Platelet Count 249 x10^3/uL (140-400) Neutrophils (%) (Auto) 67 % (31-73) Lymphocytes (%) (Auto) 28 % (24-48) Monocytes (%) (Auto) 4 % (0-9) Eosinophils (%) (Auto) 1 % (0-3) Basophils (%) (Auto) 0 % (0-3) Neutrophils # (Auto) 7.7 x10^3/uL (1.8-7.7) Lymphocytes # (Auto) 3.2 x10^3/uL (1.0-4.8) Monocytes # (Auto) 0.4 x10^3/uL (0.0-1.1) Eosinophils # (Auto) 0.1 x10^3/uL (0.0-0.7) Basophils # (Auto) 0.0 x10^3/uL (0.0-0.2) Sodium Level 143 mmol/L (136-145) Potassium Level 3.9 mmol/L (3.5-5.1) Chloride Level 106 mmol/L (98-107) Carbon Dioxide Level 29 mmol/L (21-32) Anion Gap 8 (6-14) Blood Urea Nitrogen 17 mg/dL (7-20) Creatinine 1.0 mg/dL (0.6-1.0) Estimated GFR (Cockcroft-Gault) 54.8 BUN/Creatinine Ratio 17 (6-20) Glucose Level 104 mg/dL (70-99) H Calcium Level 8.6 mg/dL (8.5-10.1) Total Bilirubin 0.4 mg/dL (0.2-1.0) Aspartate Amino Transferase (AST) 12 U/L (15-37) L Alanine Aminotransferase (ALT) 9 U/L (14-59) L Alkaline Phosphatase 102 U/L (46-116) Total Protein 6.0 g/dL (6.4-8.2) L Albumin 2.8 g/dL (3.4-5.0) L Albumin/Globulin Ratio 0.9 (1.0-1.7) L Laboratory Tests 12/08/19 11:10 12/09/19 04:00 Laboratory Tests 12/08/19 11:10 12/09/19 04:00 ECHOCARDIOGRAM ECHOCARDIOGRAM <Conclusion> The left ventricular systolic function is normal and the ejection fraction is wi thin normal range. The Ejection Fraction is 55-60%. There is normal LV segmental wall motion. DATE: 12/27/18 1128 ASSESSMENT/PLAN ASSESSMENT/PLAN 1. AFIB with RVR; new onset. Converted back to SR in ED with Cardizem bolus. Cardizem gtt held as patient was slightly bradycardiac. Echo with preserved LV systolic function 2. Chronic diastolic CHF; clinically compensated 3. Hypertension;m controlled 4. Hyperlipidemia; statin 5. Diabetes, II 6. Hypothyroidism; TSH WNL 7. Hypomagnesemia Recommendations Recheck Mg- replace as warranted Convert coreg to metoprolol for rate control Allergy to ASA. Will start OAC with Eliquis Event monitor has been arrange to note AFIB burden, guide therapy Follow up in our office with Dr. Reynoso as scheduled Consider outpatient ischemic evaluation given risk factors. ANALILIA GUERRA APRN December 09, 2019 10:23
--- NOTE | 2019-12-09 10:36 | CARD ---
MR#: [id number] Date of Study: 12/09/2019 Ordering Physician: PRANAY PACHECO, Referring Physician: PRANAY PACHECO, Tech: Merna Godfrey RDCS APPROVED REPORT EXAM: Two-dimensional and M-mode echocardiogram with Doppler and color Doppler. Other Information Quality : Good Rhythm : NSR INDICATION Atrial Fibrillation 2D DIMENSIONS RVDd2.3 (2.9-3.5cm)Left Atrium(2D)3.6 (1.6-4.0cm) IVSd1.1 (0.7-1.1cm)Aortic Root(2D)2.4 (2.0-3.7cm) LVDd4.9 (3.9-5.9cm)LVOT Diameter2.0 (1.8-2.4cm) PWd0.9 (0.7-1.1cm)LVDs2.9 (2.5-4.0cm) FS (%) 30.0 %SV84.2 ml LVEF(%)60.0 (>50%) Aortic Valve AoV Peak Robert.146.1cm/sAoV VTI32.5cm AO Peak GR.8.5mmHgLVOT Peak Robert.121.4cm/s AO Mean GR.5mmHgAVA (VMAX)2.49cm2 ZINA (VTI)2.50cm2 Mitral Valve MV E Triygndu342.9cm/sMV DECEL EQUC079dy MV A Ymnhhehe856.0cm/sE/A Ratio0.9 Tricuspid Valve TR P. Reaegbxk060iw/sRAP OHYOQFXK0tmOt TR Peak Gr.25knCqJOER04qmLq Pulmonary Vein S1 Voqwdhpc08.7cm/sD2 Hqydnhry69.2cm/s LEFT VENTRICLE The left ventricle is normal size. There is normal left ventricular wall thickness. The left ventricu lar systolic function is normal. The Ejection Fraction is 55-60%. There is normal LV segmental wall m otion. Transmitral Doppler flow pattern is Grade I-abnormal relaxation pattern. RIGHT VENTRICLE The right ventricle is normal size. The right ventricular systolic function is normal. ATRIA The left atrium size is normal. The right atrium size is normal. The interatrial septum is intact wit h no evidence for an atrial septal defect or patent foramen ovale as noted on 2-D or Doppler imaging. AORTIC VALVE The aortic valve is calcified but opens well. Doppler and Color Flow revealed no significant aortic r egurgitation. There is no significant aortic valvular stenosis. MITRAL VALVE The mitral valve is normal in structure and function. There is no evidence of mitral valve prolapse. There is no mitral valve stenosis. Doppler and Color-flow revealed trace mitral regurgitation. TRICUSPID VALVE The tricuspid valve is normal in structure and function. Doppler and Color Flow revealed trace tricus pid regurgitation. There is mild to moderate pulmonary hypertension. The PA pressure was estimated at 41 mmHg. There is no tricuspid valve stenosis. PULMONIC VALVE The pulmonary valve is normal in structure and function. Doppler and Color Flow revealed trace to mil d pulmonic valvular regurgitation. There is no pulmonic valvular stenosis. GREAT VESSELS The aortic root is normal in size. The ascending aorta is normal in size. The IVC is dilated and eleni apses >50% with inspiration. PERICARDIAL EFFUSION There is no evidence of significant pericardial effusion. Critical Notification Critical Value: No <Conclusion> The left ventricular systolic function is normal. The Ejection Fraction is 55-60%. There is normal LV segmental wall motion. Transmitral Doppler flow pattern is Grade I-abnormal relaxation pattern. Trace mitral regurgitation. Trace tricuspid regurgitation. The PA pressure was estimated at 41 mmHg. There is no evidence of significant pericardial effusion. Signed by : Guy Tellez, Electronically Approved : 12/09/2019 10:35:39
[2019-12-09 11:00] VITALS: BP 133/52
[2019-12-09] MEDS ORDERED: MAGNESIUM SULFATE 2GM 50 ML IV ONE (12:15)
--- NOTE | 2019-12-09 12:19 | NUR ---
SS following for discharge planning. SS reviewed pt chart and discussed with pt RN. Pt is from home with sister and is currently on room air. Pt's RN reported that pt will discharge to home when medically cleared. SS will continue to follow for discharge planning.
[2019-12-09] MEDS: ENOXAPARIN 40 MG/0.4 ML SYRINGE. SQ SCH (15:12)
[2019-12-09] MEDS ORDERED: METO25TA4 PO (15:49)
[2019-12-09] MEDS ORDERED: APIX5TAB PO (16:24)
--- NOTE | 2019-12-09 16:37 | NUR ---
Discharge Note: EDUARD BISHOP Discharge instructions and discharge home medications reviewed with Patient and a copy given. All questions have been answered and understanding verbalized. The following instructions and handouts were given: apixaban, insulin injections, metoprolol Patient discharged to home with daughter via wheelchair.
[2019-12-09] MEDS ORDERED: METOPROLOL TART IMMED RELEASE 25 MG TABLET. PO SCH (21:00)
--- NOTE | 2019-12-09 23:52 | DS ---
DATE OF DISCHARGE: 12/09/2019 ADMISSION DIAGNOSIS: Atrial fibrillation. DISCHARGE DIAGNOSIS: Resolving atrial fibrillation. HOSPITAL COURSE: The patient is a pleasant 69-year-old female who presented with AFib with RVR. She was admitted to the Cardiology Unit. We did serial enzymes, serial EKGs, echocardiogram. We consulted Cardiology. She converted back to sinus rhythm. This morning, I saw her and examined her, she was at her baseline, was discharged to home. DISPOSITION: Home. ACTIVITY: As tolerated. DIET: Cardiac. MEDICATIONS: Please see the MRAD. TOTAL TIME: 28 minutes. KALEY JEAN DO DR: ARNOL/caitlin JOB#: [id number] / [id number]
== END 2019-12-09 16:58 | disposition home or self-care (01) ==
LOC: ER 10:52 → 2 NORTH 12:20
PROVIDERS: ADMIT Family Medicine; ATTEND Family Medicine
DX: I48.20 Chronic atrial fibrillation, unspecified (principal); R00.1 Bradycardia, unspecified; R42 Dizziness and giddiness; I13.0 Hypertensive heart and chronic kidney disease with heart failure and stage 1 through stage 4 chronic kidney disease, or unspecified chronic kidney disease; I50.9 Heart failure, unspecified; N18.2 Chronic kidney disease, stage 2 (mild); E11.22 Type 2 diabetes mellitus with diabetic chronic kidney disease; R53.81 Other malaise; E03.9 Hypothyroidism, unspecified; M19.90 Unspecified osteoarthritis, unspecified site; E83.42 Hypomagnesemia; E78.5 Hyperlipidemia, unspecified; F02.80 Dementia in other diseases classified elsewhere, unspecified severity, without behavioral disturbance, psychotic disturbance, mood disturbance, and anxiety; Z90.710 Acquired absence of both cervix and uterus; Z87.891 Personal history of nicotine dependence
CPT/HCPCS: 36415; 71045; 80053; 81001; 82962; 83735; 84443; 84484; 85025; 85610; 93005; 93306; 94640; 96361; 96365; 96366; 96372; 96375; 96376; 97161; 97165; 99285; G0378; J0360; J1650; J1815; J2405; J3475; J3490; J7030; G0379; J7613

== ENCOUNTER → 2020-11-19 | Outpatient (CLI) | payer MEDICAID ==
[~2020-11-19] MED LIST: APIX5TAB PO; CARV25TA2 PO; CRESTOR40 MG PO; INSU100V37 SQ; INSU100V6 SQ; LEVO50TA5 PO; METF-658 PO; METO25TA4 PO; TRIA1TAB3 PO
--- NOTE | 2020-11-19 10:59 | RAD ---
CT HEAD/BRAIN WO Date: 11/19/2020 10:01 AM Clinical Indication: POOR MEMORY Comparison: None. Technique: 5 mm axial tomographic images were obtained of the head without contrast. These were view ed on brain and bone windows. One or more of the following dose reduction techniques were utilized: A utomated exposure control (AEC), Adjustment of mA and/or kV according to patient size, Use of iterati ve reconstruction technique such as ASiR, CT scan done according to ALARA and image gently/image jones ly Findings: Mild generalized cerebral and cerebellar volume loss. Mild nonspecific periventricular hypoattenuatio n, most commonly seen with chronic small vessel ischemic disease. Calcified atherosclerosis of the bi lateral cavernous and paraclinoid internal carotid arteries and intracranial vertebral arteries. No intra- or extra-axial mass or fluid collection. No acute hemorrhage. The ventricles are normal in size, shape, and morphology. The herbert-white matter junction is normal. The subarachnoid cisterns are patent. The visualized paranasal sinuses are normal. The visualized portions of the orbits and globes are no rmal. The mastoid air cells are clear. The mop worker topogram shows no lytic lesion or fracture. Impression: No acute intracranial process. Mild cerebral volume loss. Mild chronic small vessel ischemic disease. Electronically signed by: Marko Price MD (11/19/2020 10:57 AM) [id number]
== END ==
LOC: CT 11:26
PROVIDERS: ATTEND Nurse Practitioner Family
DX: R41.3 Other amnesia (principal)
CPT/HCPCS: 70450

== ENCOUNTER 2021-06-25 12:02 | Emergency (ER) | payer MEDICAID ==
[~2021-06-25] VITALS: Ht 157.5 cm; Wt 67.9 kg
[2021-06-25 12:53] VITALS: BP 146/47
--- NOTE | 2021-06-25 13:36 | PHYS DOC ---
Past Medical History Past Medical History: CHF, Hypothyroid, Other Additional Past Medical Histor: MENTALLY HANDICAP (ORLIN JURADO APRN) Past Surgical History: Appendectomy, Cholecystectomy, Hysterectomy Additional Past Surgical Histo: UNKNOWN (ORLIN JURADO APRN) Smoking Status: Never Smoker Alcohol Use: None (ORLIN JURADO APRN) General Adult EDM: Chief Complaint: ANKLE PROBLEM HPI: HPI: Patient is a 70-year-old female that presents today with left lower leg pain and right ankle pain. Patient states that she was walking up her daughter's front porch and states she stumbled and "sort of fell" she did hold on to the railing but she said by then her leg had kind of folded upon itself. This happened on Monday evening she comes in today to get checked out. Patient is able able to ambulate on both legs without difficulty she does state that they are both pretty sore (ORLIN JURADO APRN) Review of Systems: Review of Systems: Constitutional: Denies fever or chills. [] Eyes: Denies change in visual acuity. [] HENT: Denies nasal congestion or sore throat. [] Respiratory: Denies cough or shortness of breath. [] Cardiovascular: Denies chest pain or edema. [] GI: Denies abdominal pain, nausea, vomiting, bloody stools or diarrhea. [] : Denies dysuria. [] Musculoskeletal: Left lower leg pain and right ankle swelling Integument: Denies rash. [] Neurologic: Denies headache, focal weakness or sensory changes. [] Endocrine: Denies polyuria or polydipsia. [] Lymphatic: Denies swollen glands. [] Psychiatric: Denies depression or anxiety. [] (ORLIN JURADO AEROBICS INSTRUCTOR) Heart Score: C/O Chest Pain: N/A Risk Factors: Risk Factors: DM, Current or recent (<one month) smoker, HTN, HLP, family history of CAD, obesity. Risk Scores: Score 0 - 3: 2.5% MACE over next 6 weeks - Discharge Home Score 4 - 6: 20.3% MACE over next 6 weeks - Admit for Clinical Observation Score 7 - 10: 72.7% MACE over next 6 weeks - Early Invasive Strategies (ORLIN JURADO APRN) Allergies: Allergies: Allergies Coded Allergies Type Severity Reaction Last Updated Verified Penicillins Allergy Intermediate itching, nausea, vomiting 06/25/21 Yes aspirin Allergy Intermediate itching, asthma 06/25/21 Yes (ORLIN JURADO APRN) Physical Exam: PE: Constitutional: Well developed, well nourished, no acute distress, non-toxic appearance. [] HENT: Normocephalic, atraumatic, bilateral external ears normal, oropharynx moist, no oral exudates, nose normal. [] Eyes: PERRLA, EOMI, conjunctiva normal, no discharge. [] Neck: Normal range of motion, no tenderness, supple, no stridor. [] Cardiovascular:Heart rate regular rhythm, no murmur [] Lungs & Thorax: Bilateral breath sounds clear to auscultation [] Abdomen: Bowel sounds normal, soft, no tenderness, no masses, no pulsatile masses. [] Skin: Warm, dry, no erythema, no rash. [] Back: No tenderness, no CVA tenderness. [] Extremities: Left leg tenderness noted from mid femur to toes, no ecchymosis noted no abrasions noted no lacerations noted no contusions noted, 2+ dorsalis pedis in the left leg, does have swelling noted at the ankle area. Right leg is tender on the lateral portion near the fibular area there is some slight swelling noted. There is no lacerations, abrasions, contusions or ecchymosis noted. Dorsalis pedis pulse on the right leg is 2+ as well Neurologic: Alert and oriented X 3, normal motor function, normal sensory function, no focal deficits noted. [] Psychologic: Affect normal, judgement normal, mood normal. [] (ORLIN JURADO APRN) Current Patient Data: Vital Signs: Vital Signs Date Time Temp Pulse Resp B/P (MAP) Pulse Ox O2 Delivery O2 Flow Rate FiO2 06/25/21 12:53 98.1 64 18 146/47 (80) 100 Room Air 98.1 (ORLIN JURADO APRN) EKG: EKG: [] (ORLIN JURADO APRN) Radiology/Procedures: Radiology/Procedures: PROCEDURE: TIBIA FIBULA LEFT EXAM: Left foot, 2 views; left ankle, 2 views; left tibia and fibula, 2 views. HISTORY: Fall. COMPARISON: None. FINDINGS: 2 views of the left foot, ankle and tibia and fibula are obtained. There is no fracture, dislocation or subluxation. There is a small plantar spur. The ankle mortise is intact. There is no osteochondral lesion. There is lateral ankle soft tissue swelling. There is a small plantar spur. There is minimal enthesopathy at the Achilles insertion. IMPRESSION: 1. Lateral left ankle soft tissue swelling. 2. No convincing acute osseous finding.[] PROCEDURE: ANKLE RIGHT 2V EXAM: Left foot, 2 views; left ankle, 2 views; left tibia and fibula, 2 views. HISTORY: Fall. COMPARISON: None. FINDINGS: 2 views of the left foot, ankle and tibia and fibula are obtained. There is no fracture, dislocation or subluxation. There is a small plantar spur. The ankle mortise is intact. There is no osteochondral lesion. There is lateral ankle soft tissue swelling. There is a small plantar spur. There is minimal e nthesopathy at the Achilles insertion. IMPRESSION: 1. Lateral left ankle soft tissue swelling. 2. No convincing acute osseous finding. Electronically signed by: Renee Tong MD (06/25/2021 1:55 PM) [id number] (ORLIN JURADO APRN) Course & Med Decision Making: Course & Med Decision Making Pertinent Labs and Imaging studies reviewed. (See chart for details 1430 spoke to patient regarding radiological examination findings and noted that there was nothing acute findings noted . Will have patient follow-up with her primary care physician if pain continues for further management patient is agreeable to the plan of care [] (ORLIN JURADO APRN) Dragon Disclaimer: Dragunique Disclaimer: This electronic medical record was generated, in whole or in part, using a voice recognition dictation system. (ORLIN JURADO APRN) Departure Departure Impression: Primary Impression: Leg pain, bilateral Disposition: HOME / SELF CARE / HOMELESS Condition: STABLE Referrals: Rahat REY MD (PCP) Patient Instructions: Muscle Strain, [id number] Additional Instructions: Ice 20 minutes on 3-4 times daily as needed for pain [id number] Tylenol and/or ibuprofen as needed for pain Follow-up with your primary care physician over the next 5 to 7 days if pain is no better Return to the emergency department for increased pain, swelling, inability to ambulate Attending Signature Attending Signature I have reviewed the PA/SAUSAGE WRAPPER's note and plan of care. I was available for consultation as needed during the patient's visit in the emergency department. I agree with the clinical impression, plan, and disposition. (MAGDLAENO MANE DO) ORLIN JURADO APRN Jun 25, 2021 13:36 MAGDALENO MANE DO Jun 26, 2021 06:28
--- NOTE | 2021-06-25 13:57 | RAD ---
EXAM: Left foot, 2 views; left ankle, 2 views; left tibia and fibula, 2 views. HISTORY: Fall. COMPARISON: None. FINDINGS: 2 views of the left foot, ankle and tibia and fibula are obtained. There is no fracture, di slocation or subluxation. There is a small plantar spur. The ankle mortise is intact. There is no ost eochondral lesion. There is lateral ankle soft tissue swelling. There is a small plantar spur. There is minimal enthesopathy at the Achilles insertion. IMPRESSION: 1. Lateral left ankle soft tissue swelling. 2. No convincing acute osseous finding. Electronically signed by: Renee Tong MD (06/25/2021 1:55 PM) [id number]
== END 2021-06-25 14:58 | disposition home or self-care (01) ==
LOC: ER 12:42
DX: M79.662 Pain in left lower leg (principal); M79.661 Pain in right lower leg; M25.571 Pain in right ankle and joints of right foot; R22.43 Localized swelling, mass and lump, lower limb, bilateral; I50.9 Heart failure, unspecified; E03.9 Hypothyroidism, unspecified; Z88.0 Allergy status to penicillin; Z88.6 Allergy status to analgesic agent
CPT/HCPCS: 73590; 73600; 73620; 99284